=== PATIENT | female | born 1970 ===

== ENCOUNTER → 2022-05-23 08:40 | Outpatient (CLI) | payer OTHER, SELFPAY ==
--- NOTE | ~2022-05-23 | MR_ITS ---
MRI of the left knee Clinical history: Pain Technique: Coronal proton density and proton density-weighted images, sagittal proton-density and T2 fat-sat images, and axial proton-density fat-saturated images were acquired. Findings: Anterior and posterior cruciate ligaments are intact. Medial collateral ligament and the la teral collateral ligament complex are intact. Popliteus tendon is intact. No lateral meniscal tear identified. There is complex tearing of the posterior horn of the medial men iscus. Articular cartilage is well preserved in the medial and lateral compartments. There is focal high-gra de chondromalacia along the lateral aspect of the femoral trochlea with focal subchondral reactive ma rrow edema. There is mild chondral malacia patella. Minimal tricompartmental osteophytes are present. Extensor mechanism is intact. Minimal joint effusion present. No Tay's cyst. Impression: Complex tearing of the posterior horn of the medial meniscus. Mild tricompartmental osteoarthritis, as detailed above. Reviewed, dictated and finalized at [facility]. ET STITCHER Impression: Complex tearing of the posterior horn of the medial meniscus. Mild tricompartmental osteoarthritis, as detailed above.
== END ==
PROVIDERS: PCP Family Medicine Sports Medicine; Visit Provider Family Medicine Sports Medicine
DX: S83.232A Complex tear of medial meniscus, current injury, left knee, initial encounter (principal); X58.XXXA Exposure to other specified factors, initial encounter; M17.12 Unilateral primary osteoarthritis, left knee
CPT/HCPCS: 73721

== ENCOUNTER → 2023-02-05 15:57 | Outpatient (CLI) | payer OTHER, SELFPAY ==
--- NOTE | ~2023-02-05 | MR_ITS ---
EXAMINATION: MR clavicle RT wo con DATE: 02/05/2023 16:41 INDICATION: Right clavicle pain TECHNIQUE: Magnetic resonance imaging (MRI) of the right clavicle was performed without intravenous c ontrast. A marker was placed over the site of pain anterior to the medial third of the right clavicl e. Sequences included axial, sagittal and coronal T1-weighted FSE and fluid sensitive FSE STIR and la rge ospts-th-[id number] coronal T1-weighted FSE of the upper chest including the entire left and right clav icles. COMPARISON: None. FINDINGS: Right sternoclavicular osteoarthritis with small marginal osteophytes at the medial head of the clavi calixto, small joint effusion and/or synovitis and subarticular marrow edema at both sides of the joint s pace is more prominent at the manubrium. Additional mild osteoarthritis at the contralateral left brenda rnoclavicular joint but without corresponding joint effusion or subarticular edema-like signal change s. T1 hyperintense fat saturating hemangioma at the left side of T4. Marrow signal is otherwise unrem arkable. No fracture or pathologic marrow replacing process. Relatively symmetric mild bilateral acro mioclavicular osteoarthritis. Moderate right supraspinatus and infraspinatus tendinopathy. IMPRESSION: 1. Bilateral sternoclavicular osteoarthritis with asymmetric right-sided small joint effusion/synovit is and subarticular edema-like signal changes. 2. Moderate right supraspinatus and infraspinatus tendinopathy. Reviewed, dictated and finalized at [facility]. [facility] IMPRESSION: 1. Bilateral sternoclavicular osteoarthritis with asymmetric right-sided small joint effusion/synovitis and subarticular edema-like signal changes. 2. Moderate right supraspinatus and infraspinatus tendinopathy.
== END ==
PROVIDERS: PCP Family Medicine Sports Medicine
DX: M89.8X1 Other specified disorders of bone, shoulder (principal); M19.011 Primary osteoarthritis, right shoulder; M19.012 Primary osteoarthritis, left shoulder
CPT/HCPCS: 73218